=== PATIENT | female | born 1980 | race Caucasian/White ===

== ENCOUNTER 2020-10-19 01:23 | Emergency (ER) | payer MEDICARE, OTHER ==
[~2020-10-19] VITALS: Ht 170.2 cm; Wt 98.2 kg
[~2020-10-19 01:23] MED LIST: BENZ1TAB10 PO; HALO10TA3 PO
[2020-10-19 01:28] VITALS: BP 123/59
[2020-10-19] MEDS ORDERED: TOPI100T37 PO (01:34)
[2020-10-19] MEDS ORDERED: OLAN5TAB52 PO (01:34)
== END 2020-10-19 03:20 | disposition left against medical advice (07) ==
LOC: EMS 01:24
DX: F41.9 Anxiety disorder, unspecified (principal); Z53.21 Procedure and treatment not carried out due to patient leaving prior to being seen by health care provider